=== PATIENT | male | born 1940 | race Caucasian/White ===

== ENCOUNTER 2019-08-19 17:19 | Inpatient (IN) | payer MEDICARE, BC ==
[2019-08-19] MEDS ORDERED: ASPIRIN 81 MG PO STA (18:07)
[2019-08-19] MEDS ORDERED: SODIUM CHLORIDE 0.9% 1,000 ML IV STA ×2 (18:07)
[2019-08-19] MEDS ORDERED: KETOROLAC 30 MG/ML 1 ML VIAL IVP STA ×2 (18:07→21:20)
[2019-08-19] MEDS ORDERED: IPRATROPIUM-ALBUTEROL 3 ML NEB INHALATION STA (18:08)
[2019-08-19 18:44] LABS: Basophils # (A) 0.1 k/uL (0-0.2); Basophils % (A) 1 %; Eosinophils # (A) 0.2 k/uL (0-0.7); Eosinophils % (A) 3 %; HCT 33.6 % (39.0-53.0); HGB 10.7 gm/dL (13.0-17.5); Lymphocytes # (A) 1.3 k/uL (1.0-4.8); Lymphocytes % (A) 20 %; MCH 28.8 pg (25.0-35.0); MCHC 31.9 g/dL (31.0-37.0); MCV 90.4 fL (80.0-100.0); Mean Platelet Volume 6.8; Monocytes # (A) 0.4 k/uL (0-1.0); Monocytes % (A) 6 %; Neutrophils # (A) 4.5 k/uL (1.3-7.7); Neutrophils % (A) 68 %; Platelet Count 196 k/uL (150-450); RBC 3.72 m/uL (4.30-5.90); RDW 14.6 % (11.5-15.5); WBC 6.6 k/uL (3.8-10.6)
[2019-08-19 19:00] LABS: Albumin 3.3 g/dL (3.5-5.0); Magnesium 2.2 mg/dL (1.6-2.3); Potassium 4.2 mmol/L (3.5-5.1); Total Bilirubin 0.5 mg/dL (0.2-1.3); Total Protein 6.1 g/dL (6.3-8.2)
[2019-08-19 19:02] LABS: Prothrombin Time 10.4 sec (9.0-12.0)
[2019-08-19 19:09] LABS: D-Dimer 9.7 mg/L FEU (<0.60)
[2019-08-19] MEDS ORDERED: MORPHINE SULFATE 4 MG/ML SYRINGE IV STA (19:24)
--- NOTE | 2019-08-19 20:27 | XR ---
EXAMINATION: XR chest 2V DATE AND TIME: 08/19/2019 7:06 PM CLINICAL INDICATION: Chest Pain TECHNIQUE: Departmental protocol COMPARISON: 06/27/2013 FINDINGS: The lungs appear clear. The pleural spaces are negative. The cardiac silhouette is not enlarged. Thoracic aortic tortuosity noted. The skeletal structures and soft tissues are negative for acute findings. IMPRESSION: NO DEFINITE ACUTE PROCESS.
--- NOTE | 2019-08-19 21:05 | CT ---
EXAMINATION TYPE: CT angio chest DATE OF EXAM: 08/19/2019 COMPARISON: Chest x-ray earlier tonight. HISTORY: CHEST PRESSURE AND SYNCOPE CT DLP: 261.5 mGycm. Automated Exposure Control for Dose Reduction was Utilized. CONTRAST: CTA scan of the thorax is performed with IV Contrast, patient injected with 100 mL of Isovue 370, pul monary embolism protocol. MIP Images are created on CT scanner and reviewed. FINDINGS: LUNGS: Mild to moderate underlying emphysematous change most prominent in the upper lungs. Mild biap ical pleural/peripheral scarring slightly more prominent in the right lung apex. Posterior bibasilar linear scarring and/or atelectasis. No suspicious nodules or masses. No pleural effusion or pneumotho rax is evident bilaterally. MEDIASTINUM: There is satisfactory enhancement of the pulmonary artery and its branches, there is no CT evidence for pulmonary embolism. There are enlarged right and left pulmonary arteries, CT findings consistent with underlying pulmonary hypertension. There are no greater than 1 cm hilar or mediasti nal lymph nodes. No cardiomegaly or pericardial effusion is seen. Atherosclerotic change in ectatic thoracic aorta is seen. There is partial visualization of AAA measuring up to 5.5 cm transversely ax ial image 172 with significant peripheral noncalcified plaque increased in size from 2013 CT OTHER: New innumerable sclerotic foci throughout the osseous structures of the spine with a few scatt ered sternal lesions. IMPRESSION: 1. No CT evidence for acute pulmonary embolism. 2. [id number] emphysematous change with CT evidence of underlying pulmonary hypertension. No victoria spicious acute pulmonary process. 3. Partial visualization of AAA measuring up to 5.5 cm transversely increased in size from 2013 CT. 4. New innumerable sclerotic osseous foci consistent with metastatic disease from known prostate canc er new from bone scan 2012.
[2019-08-19] MEDS ORDERED: methylPREDNISolone SOD SUCCI 125 MG/2 ML VIAL IV STA (21:09)
[2019-08-19] MEDS ORDERED: HYDROmorphone 1 MG/ML 1 ML SYRINGE IVP STA (21:20)
[2019-08-19] MEDS ORDERED: ACETAMINOPHEN TAB 325 MG TAB PO PRN (21:28)
[2019-08-19] MEDS ORDERED: IBUPROFEN 400 MG TAB PO PRN (21:28)
[2019-08-19] MEDS ORDERED: HYDROmorphone 1 MG/ML 1 ML SYRINGE IVP PRN (21:28)
[2019-08-19] MEDS ORDERED: ONDANSETRON 4 MG/2 ML VIAL IVP PRN (21:28)
[2019-08-19] MEDS ORDERED: NALOXONE 0.4 MG/ML 1 ML VIAL IV PRN (21:28)
--- NOTE | 2019-08-19 21:28 | ED ---
General Adult HPI - General Chief complaint: Syncope Stated complaint: Chest pressure, syncope Time Seen by Provider: 08/19/19 18:00 Source: patient Mode of arrival: ambulatory Limitations: no limitations - History of Present Illness Initial comments: This 78-year-old white male presents with a complaint of having a syncopal episode. This apparently occurred yesterday. He was caught by a family member and did not injure himself. He denies any previous known incidents. He also relates that he's been having a 20 pound weight loss over the past month. He also complains of some pain into his thoracic region posteriorly. He has some pain into his left anterior chest as well. This is somewhat worse with any deep inspiration. He relates a history of having prostate cancer which was reviewed radiated many years ago. He follows with a urologist and states that his last PSA was fairly elevated but they did not do anything about it. He scheduled to follow-up with urology again later this month. He denies any other known history of cancer. He denies any fevers or chills. There is no leg pain or swelling. There is no history of DVT or PE. No other complaints or modifying factors. - Related Data Home Medications Medication Instructions Recorded Confirmed Aspirin EC [Ecotrin Low Dose] 81 mg PO DAILY 08/19/19 08/19/19 Ibuprofen [Motrin] 800 mg PO TID PRN 08/19/19 08/19/19 Allergies Allergy/AdvReac Type Severity Reaction Status Date / Time No Known Allergies Allergy Verified 08/19/19 18:29 Review of Systems ROS Statement: Those systems with pertinent positive or pertinent negative responses have been documented in the HPI. ROS Other: All systems not noted in ROS Statement are negative. Past Medical History Additional Past Medical History / Comment(s): prostate History of Any Multi-Drug Resistant Organisms: None Reported Past Surgical History: No Surgical Hx Reported Past Psychological History: No Psychological Hx Reported Smoking Status: Current every day smoker Past Alcohol Use History: Daily Past Drug Use History: None Reported General Exam - General Exam Comments Initial Comments: GENERAL: The patient appears malnourished and dehydrated. VITAL SIGNS: Heart rate, blood pressure, respiratory rate reviewed as recorded in nurse's notes. EYES: Pupils are round and reactive. Extraocular movements are intact. No conj unctival / lid redness or swelling. ENT: No external evidence of injury, swelling, or ecchymosis. Airway is patent. Throat is clear. NECK: Nontender. No swelling or evidence of injury. No subcutaneous emphysema. Trachea is midline. No thyroid mass. HEART: Regular rate and rhythm. Good peripheral pulses. LUNGS/CHEST: Breath sounds clear and equal bilaterally. No rales, rhonchi, or wheezes. No ecchymosis, subcutaneous emphysema, or tenderness. ABDOMEN: Abdomen soft without tenderness. No palpable masses or organomegaly. No peritoneal signs. No abdominal wall swelling or ecchymosis. EXTREMITIES: No extremity tenderness. Normal muscle tone and function. No thoracolumbar tenderness. NEUROLOGIC: Sensation is grossly intact. Cranial nerve exam reveals face is symmetrical, tongue is midline, speech is clear. SKIN: No abrasions or ecchymosis is noted. No induration or masses noted. PSYCHIATRIC: Alert and oriented. Appropriate behavior and judgment. Limitations: no limitations Course Vital Signs 08/19/19 08/19/19 08/19/19 17:30 18:34 18:43 Temperature 97.5 F L Pulse Rate 82 76 72 Pulse Rate [ Sitting Pulse Oximetery] Pulse Rate [ Standing Pulse Oximetery] Pulse Rate [ Supine Pulse Oximetery] Respiratory 18 Rate Blood Pressure 117/70 Blood Pressure [Right Arm Sitting] Blood Pressure [Right Arm Standing] Blood Pressure [Right Arm Supine] O2 Sat by Pulse 97 Oximetry 08/19/19 08/19/19 18:58 20:35 Temperature Pulse Rate 78 Pulse Rate [ 70 Sitting Pulse Oximetery] Pulse Rate [ 86 Standing Pulse Oximetery] Pulse Rate [ 89 Supine Pulse Oximetery] Respiratory 18 Rate Blood Pressure 130/84 Blood Pressure 114/77 [Right Arm Sitting] Blood Pressure 115/65 [Right Arm Standing] Blood Pressure 131/79 [Right Arm Supine] O2 Sat by Pulse 97 Oximetry Procedures - [place] Protocol (Time Out) Nurse: Sandy Dwyer Medical Decision Making - Medical Decision Making The patient was seen and examined. All diagnostics were reviewed. The patient had a chest x-ray which did not show any acute process. The laboratory does show evidence of anemia and a d-dimer greater than 8. Therefore, computed tomography scan of the thorax was done with contrast and this does show evidence of a numerable lesions noted throughout the spine and sternum likely consistent with metastatic cancer. The exact primary is not determined but is highly suspicious that this could be potentially related to his prostate in light of his history of prostate cancer and recent elevation of his PSA. He does receive some morphine for his posterior thoracic pain with limited relief. He is ordered some Dilaudid and Toradol as well. He does receive some steroids as well as a DuoNeb breathing treatment. He does have some mild shortness of breath and utilizes tobacco the breathing treatment may have helped slightly. It is felt as though he would require admission to the hospital for further treatment of his intractable pain, evaluation of his syncope and potential workup of this potential metastatic cancer. He is agreeable. Case is discussed with Dr. Mendez and he is agreeable to admission. - Lab Data Result diagrams: 08/19/19 18:24 08/19/19 18:24 Lab Results 08/19/19 08/19/19 08/19/19 Range/Units 18:24 18:24 18:24 WBC 6.6 (3.8-10.6) k/uL RBC 3.72 L (4.30-5.90) m/uL Hgb 10.7 L (13.0-17.5) gm/dL Hct 33.6 L (39.0-53.0) % MCV 90.4 (80.0-100.0) fL MCH 28.8 (25.0-35.0) pg MCHC 31.9 (31.0-37.0) g/dL RDW 14.6 (11.5-15.5) % Plt Count 196 (150-450) k/uL Neutrophils % 68 % Lymphocytes % 20 % Monocytes % 6 % Eosinophils % 3 % Basophils % 1 % Neutrophils # 4.5 (1.3-7.7) k/uL Lymphocytes # 1.3 (1.0-4.8) k/uL Monocytes # 0.4 (0-1.0) k/uL Eosinophils # 0.2 (0-0.7) k/uL Basophils # 0.1 (0-0.2) k/uL PT 10.4 (9.0-12.0) sec INR 1.0 (<1.2) APTT 24.0 (22.0-30.0) sec D-Dimer 9.70 H (<0.60) mg/L FEU Sodium 139 (137-145) mmol/L Potassium 4.2 (3.5-5.1) mmol/L Chloride 105 (98-107) mmol/L Carbon Dioxide 24 (22-30) mmol/L Anion Gap 10 mmol/L BUN 28 H (9-20) mg/dL Creatinine 0.94 (0.66-1.25) mg/dL Est GFR (CKD-EPI)AfAm 89 (>60 ml/min/1.73 sqM) Est GFR (CKD-EPI)NonAf 77 (>60 ml/min/1.73 sqM) Glucose 118 H (74-99) mg/dL Calcium 9.0 (8.4-10.2) mg/dL Magnesium 2.2 (1.6-2.3) mg/dL Total Bilirubin 0.5 (0.2-1.3) mg/dL AST 31 (17-59) U/L ALT 10 L (21-72) U/L Alkaline Phosphatase 149 H (38-126) U/L Troponin I (0.000-0.034) ng/mL NT-Pro-B Natriuret Pep pg/mL Total Protein 6.1 L (6.3-8.2) g/dL Albumin 3.3 L (3.5-5.0) g/dL TSH 1.050 (0.465-4.680) mIU/L 08/19/19 08/19/19 Range/Units 18:24 18:24 WBC (3.8-10.6) k/uL RBC (4.30-5.90) m/uL Hgb (13.0-17.5) gm/dL Hct (39.0-53.0) % MCV (80.0-100.0) fL MCH (25.0-35.0) pg MCHC (31.0-37.0) g/dL RDW (11.5-15.5) % Plt Count (150-450) k/uL Neutrophils % % Lymphocytes % % Monocytes % % Eosinophils % % Basophils % % Neutrophils # (1.3-7.7) k/uL Lymphocytes # (1.0-4.8) k/uL Monocytes # (0-1.0) k/uL Eosinophils # (0-0.7) k/uL Basophils # (0-0.2) k/uL PT (9.0-12.0) sec INR (<1.2) APTT (22.0-30.0) sec D-Dimer (<0.60) mg/L FEU Sodium (137-145) mmol/L Potassium (3.5-5.1) mmol/L Chloride (98-107) mmol/L Carbon Dioxide (22-30) mmol/L Anion Gap mmol/L BUN (9-20) mg/dL Creatinine (0.66-1.25) mg/dL Est GFR (CKD-EPI)AfAm (>60 ml/min/1.73 sqM) Est GFR (CKD-EPI)NonAf (>60 ml/min/1.73 sqM) Glucose (74-99) mg/dL Calcium (8.4-10.2) mg/dL Magnesium (1.6-2.3) mg/dL Total Bilirubin (0.2-1.3) mg/dL AST (17-59) U/L ALT (21-72) U/L Alkaline Phosphatase (38-126) U/L Troponin I <0.012 (0.000-0.034) ng/mL NT-Pro-B Natriuret Pep 1130 pg/mL Total Protein (6.3-8.2) g/dL Albumin (3.5-5.0) g/dL TSH (0.465-4.680) mIU/L Disposition Clinical Impression: History of prostate cancer, Bony metastasis, Dyspnea, Tobacco abuse, Back pain, Chest pain, Weight loss Disposition: ADMITTED IP TO THIS [facility] Condition: Poor Is patient prescribed a controlled substance at d/c from ED?: No Referrals: Nonstaff,Physician [Primary Care Provider] - 1-2 days Time of Disposition: 21:28 Decision Date: 08/19/19 Decision Time: 21:28
--- NOTE | 2019-08-19 23:06 | P.HPIM ---
History of Present Illness H&P Date: 08/19/19 Chief Complaint: Intractable back pain 78-year-old male with history of prostate cancer 20 years ago treated with radiation [place] visiting his family down here in [place]. He reports all started when he had this long drive from [place] down here felt very tired with time he got here it was raining with heavy traffic when he got out of the car he collapsed between his granddaughter's hand who caught him he thinks he might have passed out briefly he denies any head injury bystanders denies any seizure-like activities. He felt fine after that but was feeling generalized fatigue and debility for a while now. He reports at least 20 pounds of weight loss over the past month or 2. Family is concerned regarding his well-being, he lives alone and obviously he is not eating well and not taking good care of himself. He reports that recently he was told his PSA level was elevated and he was planning to follow-up with urology. He asked that he notices hematuria but no dysuria frequency or foul smell. Denies any fevers or chills denies any abdominal pain. He is complaining of severe sharp back pain in the midthoracic region which has been going on for a while getting worse and worse described it as sharp pain 10 out of 10 in severity comes and goes positional in nature worse with movement and laying down on his back gets better with leaning forward. Today the pain was very severe causing him to feel naus eous and throw up. Denies any hematemesis or bilious vomiting. He denies any GI bleeding or any changes in his bowel habits. He denies any chest pain or trouble breathing however he does report exertional dyspnea with mild exertion around the house which is new, denies any leg swelling orthopnea or paroxysmal nocturnal dyspnea. Patient doesn't take any medications at home The reason he came to the hospital today is because his kids are concerned regarding his well-being and insisted that he comes to the hospital to get evaluated. In the hospital he was found to be anemic CT of the chest and abdomen suggested bony metastasis concerning for metastatic lesions, and abdominal aortic aneurysm of 5.5 cm which has increased in size compared to 2013 he doesn't take any medications at home except for Aleve occasionally for pain Review of Systems Pertinent positives as noted in HPI. All other systems were reviewed and are negative Past Medical History Additional Past Medical History / Comment(s): prostate cancer History of Any Multi-Drug Resistant Organisms: None Reported Past Surgical History: No Surgical Hx Reported Past Psychological History: No Psychological Hx Reported Smoking Status: Current every day smoker Past Alcohol Use History: Daily Past Drug Use History: None Reported - Past Family History Family Family Medical History: No Reported History Additional Family Medical History / Comment(s): Reports history of cancer in his sister Medications and Allergies Home Medications Medication Instructions Recorded Confirmed Type Aspirin EC [Ecotrin Low Dose] 81 mg PO DAILY 08/19/19 08/19/19 History Ibuprofen [Motrin] 800 mg PO TID PRN 08/19/19 08/19/19 History Allergies Allergy/AdvReac Type Severity Reaction Status Date / Time No Known Allergies Allergy Verified 08/19/19 18:29 Physical Exam Vitals: Vital Signs Temp Pulse Pulse Pulse Pulse Resp BP 08/19/19 20:35 78 18 130/84 08/19/19 18:58 70 86 89 08/19/19 18:43 72 08/19/19 18:34 76 08/19/19 17:30 97.5 F L 82 18 117/70 BP BP BP Pulse Ox 08/19/19 20:35 97 08/19/19 18:58 114/77 115/65 131/79 08/19/19 18:43 08/19/19 18:34 08/19/19 17:30 97 Intake and Output 08/19/19 08/19/19 08/19/19 06:59 14:59 22:59 Other: Weight 58.06 kg Constitutional: Patient looks uncomfortable due to pain, conversant, pleasant, cachectic Eyes: Anicteric sclerae, moist conjunctiva, no lid-lag Pupils equal round reactive to light ENMT: NC/AT Oropharynx clear, no erythema, exudates Neck: Supple, FROM, no masses, or JVD No carotid bruits No thyromegaly Lungs: Clear to auscultation Clear to percussion Normal respiratory effort, no accessory muscle use Cardiovascular: Heart regular in rate and rhythm, No murmurs, gallops, or rubs No peripheral edema Abdominal: Soft Nontender, no guarding, rebound or rigidity Abdomen moving with respiration Normoactive bowel sounds No hepatomegaly, No splenomegaly No palpable mass No abdominal wall hernia noted Skin: Normal temperature, tone, texture, turgor No induration No subcutaneous nodules No rash, lesions No ulcers Extremities: No tenderness to palpation of the spine or the back No digital cyanosis No clubbing Pedal pulses intact and symmetrical Radial pulses intact and symmetrical No calf tenderness Psychiatric: Alert and oriented to person, place and time Appropriate affect fair judgment Neuro Muscles Strength 5/5 in all 4 extremities Sensation to light touch grossly present throughout Cranial nerves II-XII grossly intact No focal sensory deficits Lymphatics: no palpable cervical or supraclavicular , or inguinal lymph nodes Results CBC & Chem 7: 08/19/19 18:24 08/19/19 18:24 Labs: Abnormal Lab Results - Last 24 Hours (Table) 08/19/19 08/19/19 08/19/19 Range/Units 18:24 18:24 18:24 RBC 3.72 L (4.30-5.90) m/uL Hgb 10.7 L (13.0-17.5) gm/dL Hct 33.6 L (39.0-53.0) % D-Dimer 9.70 H (<0.60) mg/L FEU BUN 28 H (9-20) mg/dL Glucose 118 H (74-99) mg/dL ALT 10 L (21-72) U/L Alkaline Phosphatase 149 H (38-126) U/L Total Protein 6.1 L (6.3-8.2) g/dL Albumin 3.3 L (3.5-5.0) g/dL Assessment and Plan Assessment: 78-year-old male with history of prostate cancer 20 years ago. Admitted under observation with anticipated length of stay less than 2 midnights patient presenting with weight loss and decreased functional capacity along with intractable mid back pain Workup in the hospital suggested anemia, CT of the chest suggested bony metastasis and also suggested AAA of 5.5 cm. Plan: Intractable back pain Exertional dyspnea Anemia Abdominal aortic aneurysm of 5.5 cm Fainting episode Unintentional weight loss Debility [place]. Patient willing to establish care down here as he will be staying around for a while Patient reports elevated PSA and he was planning to follow-up with urology CT finding suggested metastatic bony lesions along with increase in size of abdominal aortic aneurysm to 5.5 cm compared to 2013 Plan Consult to urology due to patient reporting hematuria and history of prostate cancer along with recently elevated PSA Follow-up PSA level Counseled to oncology due to computed tomography scan findings suggestive of metastatic bony lesions most likely metastasis from history of prostate cancer Check LDH, PSA, ESR, Consult to vascular surgery to assess abdominal aortic aneurysm of 5.5 cm which has increased in size compared to 2013 Pain control with Toradol [place]'s and Dilaudid as needed Symptomatic treatment for vomiting which is probably induced by pain, Zofran when necessary IV fluid hydration Encourage by mouth intake as tolerated PPI twice a day Check echocardiogram for exertional dyspnea Follow up morning labs Surrogate decision-maker: Patient's son CODE STATUS: Full code DVT prophylaxis: Pneumatic compression Discussed with: Patient, ER, RN Anticipated length of stay less than [address]: Home A total of 65 minutes was spent on the care of this complex patient more than 50% of the time was spent in counseling and care coordination.
--- NOTE | 2019-08-19 23:09 | P.HPADDEND ---
H&P Addendum H&P Addendum Date: 08/19/19 Advanced Care Planning Active diagnoses: Intractable back pain concerning for metastatic bony lesions Unintentional weight loss, debility Exertional dyspnea Background: The patient was admitted for treatment of intractable back pain. Co nfirmation and clarification of wishes upon admission. Discussion: Person(s) present and participating in discussion: The patient, myself, and son and granddaughter Summary: I explained to the patient computed tomography scan findings and my concerns for metastatic bony lesions probably related to his history of prostate cancer along with unintentional weight loss. I also explained that the exertional dyspnea could be related to generalized debility but will rule out heart failure. Urology will also be consultative due to recently patient have received PSA levels that are elevated which is concerning for recurrent cancer along with patient reports of hematuria. Patient lives [place] alone with his care established over there. However he is willing to stay here in [place] on for a while with his kids to get the medical care and attention that he needs. He is willing to establish care with specialists in the area and he is hoping for complete recovery and regain his weight and strength back. He opted for CPR and resuscitation if he sustains of cardiopulmonary arrest. He named his son as a surrogate decision-maker if needed I answered all his questions with family at bedside. Time spent: Total time spent face to face in education and discussion directly related to advanced care plannin minutes
[2019-08-20] MEDS: PANTOPRAZOLE 40 MG/10 ML VIAL IVP SCH ×3 (01:13→20:40)
[2019-08-20] MEDS: NICOTINE 14MG/24HR PATCH TRANSDERM SCH ×3 (01:13→09:27)
[2019-08-20 07:38] LABS: ALT 15 U/L (21-72); AST 30 U/L (17-59); African American GFR (CKD) >90 (>60 ml/min/1.73 sqM); Albumin 2.9 g/dL (3.5-5.0); Alkaline Phosphatase 129 U/L (38-126); Anion Gap 8 mmol/L; Blood Urea Nitrogen 26 mg/dL (9-20); Calcium 8.5 mg/dL (8.4-10.2); Carbon Dioxide 22 mmol/L (22-30); Chloride 108 mmol/L (98-107); Glucose 144 mg/dL (74-99); LDH 1229 U/L (313-618); Non-African American GFR(CKD) 87 (>60 ml/min/1.73 sqM); Potassium 4.9 mmol/L (3.5-5.1); Sodium 138 mmol/L (137-145); Total Bilirubin 0.4 mg/dL (0.2-1.3); Total Protein 5.6 g/dL (6.3-8.2)
[2019-08-20 07:44] LABS: Basophils % (A) 0 %; Eosinophils # (A) 0.1 k/uL (0-0.7); Eosinophils % (A) 1 %; HCT 27.6 % (39.0-53.0); HGB 9.3 gm/dL (13.0-17.5); Lymphocytes # (A) 0.9 k/uL (1.0-4.8); Lymphocytes % (A) 15 %; MCH 29.7 pg (25.0-35.0); MCHC 33.7 g/dL (31.0-37.0); MCV 87.9 fL (80.0-100.0); Mean Platelet Volume 6.3; Monocytes # (A) 0.1 k/uL (0-1.0); Monocytes % (A) 2 %; Neutrophils # (A) 5.1 k/uL (1.3-7.7); Neutrophils % (A) 81 %; Platelet Count 162 k/uL (150-450); RBC 3.14 m/uL (4.30-5.90); RDW 14.1 % (11.5-15.5); WBC 6.3 k/uL (3.8-10.6)
[2019-08-20] MEDS ORDERED: BISACODYL 5 MG TABLET.DR PO PRN (09:00)
[2019-08-20] MEDS ORDERED: PANTOPRAZOLE 40 MG/10 ML VIAL IV SCH (09:00)
[2019-08-20] MEDS: KETOROLAC 30 MG/ML 1 ML VIAL IVP SCH ×3 (09:23→20:40)
[2019-08-20] MEDS: ASPIRIN 81 MG PO SCH (09:24)
[2019-08-20] MEDS: ENOXAPARIN 40 MG/0.4 ML SYRINGE SQ SCH (09:25)
[2019-08-20 09:45] LABS: Erythrocyte Sedimentation Rate 53 mm/hr (0-15)
--- NOTE | 2019-08-20 09:45 | CONS ---
DATE OF CONSULTATION: 08/20/2019 This is an 78-year-old gentleman who has been admitted to [facility] with history of back pain mostly in the chest area. Patient had a CT scan, no evidence of PE, but patient has a several metastatic bony lesion related to his prostate cancer with history of weight loss. [place] and he has been put on wasting with the family. Past history patient has severe prostate and had a radiation. PHYSICAL EXAMINATION: Patient was seen in his room, lying comfortably in bed. NECK: Supple trachea central. CHEST: Clear to auscultation. ABDOMEN: Soft femorals are palpable. The patient had a CT scan which showed of the chest which showed a 5.5 cm abdominal aortic aneurysm with some. PLAN: The [id number] will be seen by Oncology and Urology had and we will discuss with the patient and the family for surgical intervention. Follow with you. JAYDA / TEJAS: [id number] / MTDD
[2019-08-20 10:55] VITALS: BMI 17.3
--- NOTE | 2019-08-20 11:05 | P.GSCN ---
History of Present Illness Consult date: 08/20/19 Reason for Consult: The patient is an 78-year-old gentleman who was in the hospital with syncope. He apparently has a known history of prostate cancer with metastases. He has been cared for over the years by but in the last year [place] and is now being cared for by urologist in [facility]. Apparently the patient's disease is metastatic. He states that his PSA is in the 140 range. He states that when he last saw Dr. Calvin was in the 90 range. He states that he had radiation therapy to the prostate at 58. He is not certain of whether he has had any treatment for the metastases. On some pills but he cannot say exactly what these pills are. His son gave me the name of tamsulosin. He does not know whether he is on any LHRH therapy or antiandrogen therapy. He has periodic hematuria. He had a difficult time with urine retention back last winter. It sounds like he had either a surgical procedure or filiforms and followers to place a catheter. He states he's been voiding all right since. He has no bowel issues. He does have significant back pain. His history unfortunately is very vague. He does not know the name of his urologist in [place]. He has had some weight loss. Review of Systems - Constitutional Reports weakness, Reports weight loss - Genitourinary Reports as per HPI, Reports hematuria - Musculoskeletal Reports low back pain Past Medical History Additional Past Medical History / Comment(s): prostate cancer History of Any Multi-Drug Resistant Organisms: None Reported Past Surgical History: No Surgical Hx Reported Past Psychological History: No Psychological Hx Reported Smoking Status: Current every day smoker Past Alcohol Use History: Daily Past Drug Use History: None Reported - Past Family History Family Family Medical History: No Reported History Additional Family Medical History / Comment(s): Reports history of cancer in his sister Medications and Allergies Home Medications Medication Instructions Recorded Confirmed Type Aspirin EC [Ecotrin Low Dose] 81 mg PO DAILY 08/19/19 08/19/19 History Ibuprofen [Motrin] 800 mg PO TID PRN 08/19/19 08/19/19 History Tamsulosin [Flomax] 0.4 mg PO BID 08/20/19 08/20/19 History Allergies Allergy/AdvReac Type Severity Reaction Status Date / Time No Known Allergies Allergy Verified 08/19/19 18:29 Surgical - Exam Vital Signs Temp Pulse Resp BP Pulse Ox 97.5 F L 82 18 117/70 97 08/19/19 17:30 08/19/19 17:30 08/19/19 17:30 08/19/19 17:30 08/19/19 17:30 - General well developed, well nourished, no distress - Eyes PERRL - ENT no hearing loss - Neck trachea midline - Respiratory normal expansion, normal respiratory effort - Cardiovascular Rhythm: regular - Abdomen Abdomen: soft, non tender - Genitourinary normal penis with no external lesions, testicles present - Integumentary no rash - Neurologic normal coordination, normal sensation - Musculoskeletal normal posture - Psychiatric oriented to time, oriented to person, oriented to place, speech is normal, memory intact Results - Labs 08/20/19 06:50 08/20/19 06:50 Abnormal Lab Results - Last 24 Hours (Table) 08/19/19 08/19/19 08/19/19 Range/Units 18:24 18:24 18:24 RBC 3.72 L (4.30-5.90) m/uL Hgb 10.7 L (13.0-17.5) gm/dL Hct 33.6 L (39.0-53.0) % Lymphocytes # (1.0-4.8) k/uL ESR (0-15) mm/hr D-Dimer 9.70 H (<0.60) mg/L FEU Chloride (98-107) mmol/L BUN 28 H (9-20) mg/dL Glucose 118 H (74-99) mg/dL ALT 10 L (21-72) U/L Alkaline Phosphatase 149 H (38-126) U/L Lactate Dehydrogenase (313-618) U/L Total Protein 6.1 L (6.3-8.2) g/dL Albumin 3.3 L (3.5-5.0) g/dL 08/20/19 08/20/19 Range/Units 06:50 06:50 RBC 3.14 L (4.30-5.90) m/uL Hgb 9.3 L (13.0-17.5) gm/dL Hct 27.6 L (39.0-53.0) % Lymphocytes # 0.9 L (1.0-4.8) k/uL ESR 53 H (0-15) mm/hr D-Dimer (<0.60) mg/L FEU Chloride 108 H (98-107) mmol/L BUN 26 H (9-20) mg/dL Glucose 144 H (74-99) mg/dL ALT 15 L (21-72) U/L Alkaline Phosphatase 129 H (38-126) U/L Lactate Dehydrogenase 1229 H (313-618) U/L Total Protein 5.6 L (6.3-8.2) g/dL Albumin 2.9 L (3.5-5.0) g/dL Diabetes panel 08/19/19 08/20/19 Range/Units 18:24 06:50 Sodium 139 138 (137-145) mmol/L Potassium 4.2 4.9 (3.5-5.1) mmol/L Chloride 105 108 H (98-107) mmol/L Carbon Dioxide 24 22 (22-30) mmol/L BUN 28 H 26 H (9-20) mg/dL Creatinine 0.94 0.75 (0.66-1.25) mg/dL Glucose 118 H 144 H (74-99) mg/dL Calcium 9.0 8.5 (8.4-10.2) mg/dL AST 31 30 (17-59) U/L ALT 10 L 15 L (21-72) U/L Alkaline Phosphatase 149 H 129 H (38-126) U/L Total Protein 6.1 L 5.6 L (6.3-8.2) g/dL Albumin 3.3 L 2.9 L (3.5-5.0) g/dL Thyroid panel 08/19/19 Range/Units 18:24 TSH 1.050 (0.465-4.680) mIU/L Calcium panel 08/19/19 08/20/19 Range/Units 18:24 06:50 Calcium 9.0 8.5 (8.4-10.2) mg/dL Albumin 3.3 L 2.9 L (3.5-5.0) g/dL Pituitary panel 08/19/19 08/20/19 Range/Units 18:24 06:50 Sodium 139 138 (137-145) mmol/L Potassium 4.2 4.9 (3.5-5.1) mmol/L Chloride 105 108 H (98-107) mmol/L Carbon Dioxide 24 22 (22-30) mmol/L BUN 28 H 26 H (9-20) mg/dL Creatinine 0.94 0.75 (0.66-1.25) mg/dL Glucose 118 H 144 H (74-99) mg/dL Calcium 9.0 8.5 (8.4-10.2) mg/dL TSH 1.050 (0.465-4.680) mIU/L Adrenal panel 08/19/19 08/20/19 Range/Units 18:24 06:50 Sodium 139 138 (137-145) mmol/L Potassium 4.2 4.9 (3.5-5.1) mmol/L Chloride 105 108 H (98-107) mmol/L Carbon Dioxide 24 22 (22-30) mmol/L BUN 28 H 26 H (9-20) mg/dL Creatinine 0.94 0.75 (0.66-1.25) mg/dL Glucose 118 H 144 H (74-99) mg/dL Calcium 9.0 8.5 (8.4-10.2) mg/dL Total Bilirubin 0.5 0.4 (0.2-1.3) mg/dL AST 31 30 (17-59) U/L ALT 10 L 15 L (21-72) U/L Alkaline Phosphatase 149 H 129 H (38-126) U/L Total Protein 6.1 L 5.6 L (6.3-8.2) g/dL Albumin 3.3 L 2.9 L (3.5-5.0) g/dL - Imaging CT scan - abdomen: report reviewed, image reviewed CT scan - chest: report reviewed, image reviewed Assessment and Plan Assessment: Impression: Apparent metastatic prostate cancer based on limited history as well as recent computed tomography scan a. Back pain, weight loss dilated aortic aneurysm. Recommendations: Whether the patient has been on any treatment for his metastatic disease. Is indeterminate. I will review and have review the chart. We will follow up with further recommendations. Most likely any care for his prostate cancer will be instituted up in [place] has he is living up in that region.
--- NOTE | 2019-08-20 11:48 | P.PN ---
Subjective Progress Note Date: 08/20/19 The patient is an 78 yo M with past medical history of prostate CA status post radiation, presented to the ED with an episode of near syncope along with complaints of weight loss and lower back pain. The patient endorsed a sharp pain in the upper back, 10 out of 10, The patient denied urinary complaints, chest pain, shortness of breath, nausea, or vomiting. The patient underwent an extensive evaluation in the emergency room with chest CTA showing abdominal aortic aneurysm measuring 5.5 cm, increased from the previous CT, along with numerous sclerotic cautious foci consistent with metastatic disease of the spine. The patient was subsequently admitted for further management. Patient was seen by the bedside and noted significant improvement in his pain since admission, currently at a 4 out of 10. He denied any additional complaints. He denied urinary complaints, weakness, numbness, tingling, or any additional episodes of loss of consciousness or dizziness. The patient's LDH is increased at 1229, Alk be 129, and ESR 53. Oncology, vascular surgery, and urology were consulted w/ recs pending. Objective - Vital Signs Vital signs: Vital Signs Temp 97.6 F 08/20/19 04:13 Pulse 67 08/20/19 04:13 Resp 18 08/20/19 04:13 BP 109/65 08/20/19 04:13 Pulse Ox 95 08/20/19 04:13 Intake & Output 08/19/19 08/20/19 08/20/19 18:59 06:59 18:59 Intake Total 600 Output Total 400 Balance 200 Weight 58.06 kg 58.06 kg Intake: Intake, IV Titration 600 Amount Sodium Chloride 0.9% 1, 600 000 ml @ 100 mls/hr IV . Q10H STA Rx#:[id number] Output: Urine 400 Other: # Voids 2 - Exam General: Non-toxic, in no acute distress, appears stated age, underweight HEENT: NC/AT, anicteric sclerae, moist conjunctiva, no lid-lag, PERRLA Cardiovascular: S1/S2 wnl, no murmurs, rubs, or gallops Lungs: Clear to auscultation, normal respiratory effort, no accessory muscle use Abdominal: Soft, non-tender, non-distended, no guarding, rebound, or rigidity Skin: Warm, dry Extremities: No edema or contractures, thoracic vertebral tenderness, no paraspinal tenderness noted Psychiatric: Alert and oriented to person, place and time, appropriate affect Neuro: CN II-XII grossly intact, Strength 5/5 in all 4 extremities, Speech intact, Sensation to light touch grossly intact throughout - Labs CBC & Chem 7: 08/20/19 06:50 08/20/19 06:50 Labs: Abnormal Lab Results - Last 24 Hours (Table) 08/19/19 08/19/19 08/19/19 Range/Units 18:24 18:24 18:24 RBC 3.72 L (4.30-5.90) m/uL Hgb 10.7 L (13.0-17.5) gm/dL Hct 33.6 L (39.0-53.0) % Lymphocytes # (1.0-4.8) k/uL ESR (0-15) mm/hr D-Dimer 9.70 H (<0.60) mg/L FEU Chloride (98-107) mmol/L BUN 28 H (9-20) mg/dL Glucose 118 H (74-99) mg/dL ALT 10 L (21-72) U/L Alkaline Phosphatase 149 H (38-126) U/L Lactate Dehydrogenase (313-618) U/L Total Protein 6.1 L (6.3-8.2) g/dL Albumin 3.3 L (3.5-5.0) g/dL 08/20/19 08/20/19 Range/Units 06:50 06:50 RBC 3.14 L (4.30-5.90) m/uL Hgb 9.3 L (13.0-17.5) gm/dL Hct 27.6 L (39.0-53.0) % Lymphocytes # 0.9 L (1.0-4.8) k/uL ESR 53 H (0-15) mm/hr D-Dimer (<0.60) mg/L FEU Chloride 108 H (98-107) mmol/L BUN 26 H (9-20) mg/dL Glucose 144 H (74-99) mg/dL ALT 15 L (21-72) U/L Alkaline Phosphatase 129 H (38-126) U/L Lactate Dehydrogenase 1229 H (313-618) U/L Total Protein 5.6 L (6.3-8.2) g/dL Albumin 2.9 L (3.5-5.0) g/dL Assessment and Plan Plan: History of prostate cancer with newly diagnosed metastatic lesions to the spine -Oncology and urology consulted -Recommendations pending -ESR 53, LDH 1229, PSA pending Abdominal aortic aneurysm, increased to 5.5 cm -Vascular surgery consulted -Awaiting recommendations Normocytic anemia, likely secondary to chronic inflammation for malignancy -Monitor for now Cachexia -Secondary to advanced malignancy -Dietitian consult DVT prophylaxis -Lovenox Discussed with: Patient Anticipated discharge date: 1-[address]: Home A total of 35 minutes was spent on the care of this complex patient more than 50% of the time was spent in counseling and care coordination.
--- NOTE | 2019-08-20 14:42 | ECHOF ---
Referral Reason:Exertional dyspnea MEASUREMENTS -------- HEIGHT: 182.9 cm WEIGHT: 58.1 kg BP: 109/65 RVIDd: 3.7 cm (< 3.3) IVSd: 1.3 cm (0.6 - 1.1) LVIDd: 4.3 cm (3.9 - 5.3) LVPWd: 1.3 cm (0.6 - 1.1) IVSs: 1.6 cm LVIDs: 3.5 cm LVPWs: 1.6 cm LA Diam: 3.6 cm (2.7 - 3.8) LAESV Index (A-L): 32.89 ml/m Ao Diam: 3.7 cm (2.0 - 3.7) AV Cusp: 2.0 cm (1.5 - 2.6) TAPSE: 2.2 cm EPSS: 1.0 cm MV E Chi: 0.87 m/s MV DecT: 138 ms MV A Chi: 0.37 m/s MV E/A Ratio: 2.34 AV maxP.24 mmHg AV meanP.08 mmHg AR PHT: 756 ms RAP: 15.00 mmHg RVSP: 42.77 mmHg MV EF SLOPE: 62.76 mm/s (70 - 150) MV EXCURSION: 1.18 cm (> 18.000) FINDINGS -------- Resting bradycardia (HR<60bpm). The left ventricular size is normal. There is mild concentric left ventricular hypertrophy. Overa ll left ventricular systolic function is mildly impaired with, an EF between 45 - 50 %. Basal infer ior LV wall motion is akinetic. Basal inferoseptal LV wall motion is hypokinetic. Basel infero latera hypokinesis. Mid infero lateral hypokinesis The right ventricle is mildly enlarged. Left atrium is mildly dilated by volume. The right atrium is normal in size and function. Interatrial and interventricular septum intact. Aortic valve is trileaflet and is mildly thickened. The mitral valve leaflets are mildly thickened. Mild mitral annular calcification present. There is trace to mild mitral regurgitation. Mild tricuspid regurgitation present. There is mild pulmonary hypertension. The right ventricular systolic pressure, as measured by Doppler, is 42.77mmHg. Trace/mild (physiologic) pulmonic regurgitation. The aortic root size is normal. The inferior vena cava is dilated with poor inspiratory collapse which is consistent with estimated r ight atrial pressure of 15 mmHg. There is no pericardial effusion. CONCLUSIONS -------- 1. Resting bradycardia (HR<60bpm). 2. The left ventricular size is normal. 3. There is mild concentric left ventricular hypertrophy. 4. Overall left ventricular systolic function is mildly impaired with, an EF between 45 - 50 %. 5. Basal inferior LV wall motion is akinetic. 6. Basal inferoseptal LV wall motion is hypokinetic. 7. Basel infero latera hypokinesis. Mid infero lateral hypokinesis 8. The right ventricle is mildly enlarged. 9. Left atrium is mildly dilated by volume. 10. The right atrium is normal in size and function. 11. Interatrial and interventricular septum intact. 12. Aortic valve is trileaflet and is mildly thickened. 13. The mitral valve leaflets are mildly thickened. 14. Mild mitral annular calcification present. 15. There is trace to mild mitral regurgitation. 16. Mild tricuspid regurgitation present. 17. There is mild pulmonary hypertension. 18. The right ventricular systolic pressure, as measured by Doppler, is 42.77mmHg. 19. Trace/mild (physiologic) pulmonic regurgitation. 20. The aortic root size is normal. 21. The inferior vena cava is dilated with poor inspiratory collapse which is consistent with estimat ed right atrial pressure of 15 mmHg. 22. There is no pericardial effusion. [employer]MECHANIC: ANNA Martines
--- NOTE | 2019-08-20 15:02 | P.CONS ---
History of Present Illness - Reason for Consult Consult date: 08/20/19 ?[place] [facility] Les[facility] Requesting physician: Andrew Jiménez - Chief Complaint pain - History of Present Illness Mr. Rogle is patient with known prostate cancer who has been treated and following with Urology for his malignancy. Medical oncology has been consulted this hospitalization for concern of progressive disease to bone. Review of Systems A 14 point review of systems assessed and completed and all negative except hpi Past Medical History Additional Past Medical History / Comment(s): prostate cancer History of Any Multi-Drug Resistant Organisms: None Reported Past Surgical History: No Surgical Hx Reported Past Psychological History: No Psychological Hx Reported Smoking Status: Current every day smoker Past Alcohol Use History: Daily Past Drug Use History: None Reported - Past Family History Family Family Medical History: No Reported History Additional Family Medical History / Comment(s): Reports history of cancer in his sister Medications and Allergies Home Medications Medication Instructions Recorded Confirmed Type Aspirin EC [Ecotrin Low Dose] 81 mg PO DAILY 08/19/19 08/19/19 History Ibuprofen [Motrin] 800 mg PO TID PRN 08/19/19 08/19/19 History Tamsulosin [Flomax] 0.4 mg PO BID 08/20/19 08/20/19 History Allergies Allergy/AdvReac Type Severity Reaction Status Date / Time No Known Allergies Allergy Verified 08/19/19 18:29 Physical Exam Vitals: Vital Signs Temp Pulse Pulse Pulse Pulse Resp BP 08/20/19 04:13 97.6 F 67 18 08/20/19 00:00 70 86 64 18 08/19/19 23:00 98.0 F 67 18 136/73 08/19/19 21:59 97.4 F L 64 16 08/19/19 21:34 72 18 141/89 08/19/19 20:35 78 18 130/84 08/19/19 18:58 70 86 89 08/19/19 18:43 72 08/19/19 18:34 76 08/19/19 17:30 97.5 F L 82 18 117/70 BP BP BP Pulse Ox 08/20/19 04:13 109/65 95 08/20/19 00:00 08/19/19 23:00 97 08/19/19 21:59 140/56 95 08/19/19 21:34 95 08/19/19 20:35 97 08/19/19 18:58 114/77 115/65 131/79 08/19/19 18:43 08/19/19 18:34 08/19/19 17:30 97 Intake and Output 08/19/19 08/20/19 08/20/19 22:59 06:59 14:59 Intake Total 600 Output Total 400 Balance 200 Intake: Intake, IV Titration 600 Amount Sodium Chloride 0.9% 1, 600 000 ml @ 100 mls/hr IV . Q10H STA Rx#:[id number] Output: Urine 400 Other: # Voids 2 Weight 58.06 kg 58.06 kg - Constitutional General appearance: average body habitus, no acute distress - EENT Eyes: EOMI, PERRLA ENT: hard of hearing, NA/AT - Neck supple - Respiratory Respiratory: bilateral: CTA - Cardiovascular Rhythm: regular Heart sounds: normal: S1, S2 - Gastrointestinal General gastrointestinal: normal bowel sounds, soft - Integumentary Integumentary: pale - Neurologic no focal defects - Musculoskeletal Musculoskeletal: generalized weakness - Psychiatric Psychiatric: A&O x's 3, appropriate affect Results CBC & Chem 7: 08/20/19 06:50 08/20/19 06:50 Labs: Abnormal Lab Results - Last 24 Hours (Table) 08/19/19 08/19/19 08/19/19 Range/Units 18:24 18:24 18:24 RBC 3.72 L (4.30-5.90) m/uL Hgb 10.7 L (13.0-17.5) gm/dL Hct 33.6 L (39.0-53.0) % Lymphocytes # (1.0-4.8) k/uL ESR (0-15) mm/hr D-Dimer 9.70 H (<0.60) mg/L FEU Chloride (98-107) mmol/L BUN 28 H (9-20) mg/dL Glucose 118 H (74-99) mg/dL ALT 10 L (21-72) U/L Alkaline Phosphatase 149 H (38-126) U/L Lactate Dehydrogenase (313-618) U/L Total Protein 6.1 L (6.3-8.2) g/dL Albumin 3.3 L (3.5-5.0) g/dL 08/20/19 08/20/19 Range/Units 06:50 06:50 RBC 3.14 L (4.30-5.90) m/uL Hgb 9.3 L (13.0-17.5) gm/dL Hct 27.6 L (39.0-53.0) % Lymphocytes # 0.9 L (1.0-4.8) k/uL ESR 53 H (0-15) mm/hr D-Dimer (<0.60) mg/L FEU Chloride 108 H (98-107) mmol/L BUN 26 H (9-20) mg/dL Glucose 144 H (74-99) mg/dL ALT 15 L (21-72) U/L Alkaline Phosphatase 129 H (38-126) U/L Lactate Dehydrogenase 1229 H (313-618) U/L Total Protein 5.6 L (6.3-8.2) g/dL Albumin 2.9 L (3.5-5.0) g/dL Assessment and Plan Plan: Metastatic Prostate Cancer: - Managed by Urology - Will consult urology - Unclear treatment he was on and if bone progression is new. - Bone Scan ordered - Repeat PSA Physician Attest: I have completed the full history and physical and agree with above dictation, dictated as a scribe
[2019-08-20] MEDS: HYDROcodone/APAP 5-325MG 1 EACH TAB PO PRN ×2 (15:13→19:11)
--- NOTE | 2019-08-20 16:17 | NM ---
EXAMINATION TYPE: NM bone scan whole body DATE OF EXAM: 08/20/2019 COMPARISON: Prior nuclear medicine whole body bone scan June 27, 2013. CTA chest from earlier today. HISTORY: History of prostate cancer. Delayed whole-body scanning was performed following the injection of 23.8 mCi Tc 99m MDP. Images acq uired 3 hours post injection. FINDINGS: There are innumerable areas of radiotracer uptake throughout the bilateral ribs as well as multifocal throughout the thoracolumbar spine with 2 right femoral lesions thought present. Findings correlate with most recent CTA chest study. IMPRESSION: Confirmation of diffuse osseous metastatic disease.
[2019-08-20] MEDS: TAMSULOSIN 0.4 MG CAP.ER.24H PO SCH (20:40)
[2019-08-21] MEDS: HYDROcodone/APAP 5-325MG 1 EACH TAB PO PRN ×4 (01:07→19:54)
[2019-08-21] MEDS: KETOROLAC 30 MG/ML 1 ML VIAL IVP SCH ×4 (02:24→21:02)
--- NOTE | 2019-08-21 07:55 | PN ---
PROGRESS NOTE An 78-year-old gentleman who came with back pain. Patient had history of CA of prostate and CT scan shows infrarenal aortic aneurysm 5.3 with bone mets. PHYSICAL EXAMINATION: The patient on examination, lying comfortably in bed. ABDOMEN: Soft, nontender. Femoral pulses are present. Aorta is nontender. Patient has been getting pain medication. At this point, aneurysm is stable and we will follow with you. If patient goes home, I will follow up in my office. MMODL / IJN: [id number] /
[2019-08-21] MEDS: PANTOPRAZOLE 40 MG/10 ML VIAL IVP SCH ×2 (08:22→08:26)
[2019-08-21] MEDS: ASPIRIN 81 MG PO SCH (08:22)
[2019-08-21] MEDS: ENOXAPARIN 40 MG/0.4 ML SYRINGE SQ SCH ×2 (08:22→08:32)
[2019-08-21] MEDS: TAMSULOSIN 0.4 MG CAP.ER.24H PO SCH ×2 (08:22→19:57)
[2019-08-21] MEDS: NICOTINE 14MG/24HR PATCH TRANSDERM SCH (08:25)
[2019-08-21] MEDS: PANTOPRAZOLE 40 MG TABLET PO SCH (17:46)
--- NOTE | 2019-08-21 19:43 | P.PN ---
Subjective Progress Note Date: 08/21/19 (delayed charting seen at 1145) Principal diagnosis: weakness and syncope Patient is an 78-year-old male past medical history of prostate cancer treated with radiation, prior myocardial infarction approximately 20 years ago, and tobacco abuse who presented to [facility] after a syncopal episode. Patient had been living near [place] but was down here visiting family. He also reported a 20 pound weight loss over the last several months. He has been having severe sharp back pain with radiation to the anterior chest. In the ER he underwent an extensive evaluation. CT a of the chest which showed mild to moderate emphysematous changes with new innumerable sclerotic foci consistent with metastatic disease from known prostate cancer and an abdominal aortic aneurysm 5.5 cm which has increased in size compared to 2013. On initial evaluation in the ER his vital signs are within normal limits. Orthostatics were negative. Laboratory analysis showed anemia, elevated BUN at 28, elevated alkaline phosphatase at 149, and low albumin at 3.3. Oncology and urology were consulted. Dr. Sparrow stated patient was following [facility] but would discuss case with Dr. Calvin. He was seen by oncology who suggested a bone scan. Echocardiogram was completed to his syncopal event which showed an ejection fraction of 45-50% with global left ventricular hypokinesis. Dr. Hoffman was consulted from vascular surgery who recommended outpatient follow-up for his aortic aneurysm. He underwent a nuclear medicine bone scan which showed confirmation of the diffuse osseous metastatic disease. There was innumerable areas of radial tracer uptake throughout the bilateral ribs, multifocal throughout the thoracolumbar spine, with 2 right femoral lesions. Patient seen and examined at bedside. He states his pain is well-controlled today and he felt better than he has in months. He denies any chest pain, shortness breath, nausea, vomiting, or lower extremity edema. He reports that he had a history of a myocardial infarction approximately 20 years ago. He has not been following with a marketing systems analyst. He also states that he recently transferred his care to [facility] approximately one year ago. He has seen the urologist up there once on a primary care doctor up there twice. However he has no family support near [place] if he needs treatment for prostate cancer he would like this done in the [place] area. Objective - Vital Signs Vital signs: Vital Signs Temp 97.5 F L 08/21/19 12:28 Pulse 67 08/21/19 15:39 Resp 17 08/21/19 15:39 BP 129/80 08/21/19 12:28 Pulse Ox 93 L 08/21/19 12:28 Intake & Output 08/21/19 08/21/19 08/22/19 06:59 18:59 06:59 Intake Total 1400 2400 Output Total 400 Balance 1400 2000 Intake: Intake, IV Titration 300 Amount Sodium Chloride 0.9% 1, 300 000 ml @ 100 mls/hr IV . Q10H STA Rx#:[id number] Oral 1100 2400 Output: Urine 400 Other: Voiding Method Toilet Toilet Urinal Urinal # Voids 2 4 - Exam General: ill appearing, temporal wasting, sunken in eyes, no distress, appears at stated age Derm: warm, dry Head: atraumatic, normocephalic, symmetric Eyes: EOMI, no lid lag, anicteric sclera Mouth: no lip lesion, mucus membranes moist Cardiovascular: S1S2 reg, no murmur, positive posterior tibial pulse bilateral, Lungs: Decreased breath sounds bilateral, no rhonchi, no rales , no accessory muscle use Abdominal: soft, nontender to palpation, no guarding, no appreciable organomegaly Ext: no gross muscle atrophy, no edema, no contractures Neuro: CN II-XI grossly intact, no focal neuro deficits Psych: Alert, oriented, appropriate affect - Labs CBC & Chem 7: 08/20/19 06:50 08/20/19 06:50 Labs: Abnormal Lab Results - Last 24 Hours (Table) 08/19/19 08/20/19 Range/Units 18:24 06:50 Total PSA >150.0 H (<=4.0) ng/mL Total Testosterone 42.00 L (86.98-780.10) ng/dL Assessment and Plan Assessment: Diffuse Emily Metastasis with known prostate cancer, intractable pain - patient would like treatment in the [place] Area - known to Dr. Calvin in the past, transferred care to [place] 1 year ago, Patient states that cancer was not in bone the last he knew - Oncology recs - Pain currently controlled on toradol and dailudid - consider palliative radiation if pain uncontrolled - patient would not want chemo but would be okay with hormone therapy. - PSA >150 - Patient unaware of name of current urologist or if on current treatment - would like palliative care on discharge to help with pain control Abdominal aortic aneurysm - vascular surgery recs appreciated, outpatient follow-up Syncope with newly discovered cardiomyopathy - tele - consult cardio - start coreg BPH - flomax Anemia - stable - check iron studies Cachexia with severe protein calorie malnutrition, BMI 17.4 - consult dietitian - supplements DVT prophylaxis: Lovenox (hold incase biopsy needed) Discussed with: Patient Anticipated discharge date: 1-[address]: Home A total of 45 minutes was spent on the care of this complex patient more than 50% of the time was spent in counseling and care coordination.
--- NOTE | 2019-08-21 20:40 | P.PN ---
Progress Note - Text Progress Note Date: 08/21/19 The patient says that he is much more comfortable with his current dose of analgesics. PSA is >150. A testosterone was checked and is 42 which indicates inadequate androgen suppression. Bone scan showed multiple areas consistent with metastatic disease. The patient has a somewhat complicated urologic history. He was diagnosed with prostate cancer in 1994 when his PSA was 7.0. He received radiation therapy at the [facility] but did not return there for follow-up after one yea r. He was first seen by me in 2005 when his PSA was 10.82. A bone scan showed increased uptake in the right femur however this was the site of a previous bone fracture and did not appear to be metastatic. CT scan of the abdomen and pelvis showed no evidence of metastatic disease. It was elected to observe the patient as he has no symptoms at that time. His PSA ric to 12.5 in 02/2007 and then 15.2 in 10/2007. He again prefer observation. PSA was 19.1 in 01/2008. Bone scan was repeated but no showed no changes. He did not return for follow-up for some time and was seen again in 2016 when his PSA was 91.8. He was given a 6 month Lupron injection in 12/2016 and was not seen again until 06/2018. At that time his PSA was 84.7. He received another 6 month Lupron injection in 07/2018. He moved away from this area and declined follow-up due to the distance he would have to travel. He says that he had seen Iseladianne Hernandez DO in [place] last spring but could not recall whether he had received another Lupron injection. He thinks he had a PSA done but unfortunately I have no records of the PSA value. I had a long discussion with the patient and his granddaughter. I believe that he should be restarted on Lupron at this time as his testosterone is in the non- castrate range. In view of his abnormal bone scan several options for additional treatment were also discussed. He could received localized radiation therapy to the areas in his spine which are currently painful. I believe that he would also benefit from additional anti-androgen therapy using either enzalutamide or abiatarone/prednisone and/or chemotherapy with docetaxel. An attempt will be made to see what had been done as far as treatment last spring as well as his most recent PSAs.
[2019-08-22] MEDS: KETOROLAC 30 MG/ML 1 ML VIAL IVP SCH ×3 (03:03→13:24)
[2019-08-22] MEDS: HYDROcodone/APAP 5-325MG 1 EACH TAB PO PRN ×2 (05:36→09:43)
[2019-08-22] MEDS: TAMSULOSIN 0.4 MG CAP.ER.24H PO SCH (07:59)
[2019-08-22] MEDS: PANTOPRAZOLE 40 MG TABLET PO SCH (07:59)
[2019-08-22] MEDS: ASPIRIN 81 MG PO SCH (07:59)
[2019-08-22] MEDS: NICOTINE 14MG/24HR PATCH TRANSDERM SCH (08:02)
[2019-08-22 08:40] LABS: HCT 26.3 % (39.0-53.0); HGB 8.8 gm/dL (13.0-17.5); MCH 30.4 pg (25.0-35.0); MCHC 33.3 g/dL (31.0-37.0); MCV 91.3 fL (80.0-100.0); Mean Platelet Volume 6.3; Platelet Count 154 k/uL (150-450); RBC 2.88 m/uL (4.30-5.90); RDW 14.5 % (11.5-15.5); WBC 6.2 k/uL (3.8-10.6)
[2019-08-22 08:59] LABS: African American GFR (CKD) >90 (>60 ml/min/1.73 sqM); Anion Gap 3 mmol/L; Blood Urea Nitrogen 25 mg/dL (9-20); Calcium 7.8 mg/dL (8.4-10.2); Carbon Dioxide 25 mmol/L (22-30); Chloride 107 mmol/L (98-107); Glucose 89 mg/dL (74-99); Non-African American GFR(CKD) 88 (>60 ml/min/1.73 sqM); Potassium 3.9 mmol/L (3.5-5.1); Sodium 135 mmol/L (137-145)
--- NOTE | 2019-08-22 13:09 | P.PN ---
Progress Note - Text Progress Note Date: 08/22/19 I was able to obtain some information from the urologist in [place] who had seen the patient last spring. The patient did not receive any additional Lupron injections since the fall. PSA was 242.7 on 06/04/2019. 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 I had a long discussion with the patient and two of his sons regarding treatment options. I again reviewed focal radiation therapy to his spine for pain relief. I also discussed chemotherapy with docetaxal and/or androgen deprivation therapy. The patient has an appointment to discuss this further with Dr. Lau next week.
--- NOTE | 2019-08-22 13:36 | P.CRDCN ---
History of Present Illness History of present illness: This is a pleasant 78-year-old male past medical history significant for prostate cancer s/p radiation treatment, coronary artery disease 40 yrs ago, chronic nicotine dependence and daily alcohol intake. He does not follow regularly with a net trainer. He presented to the hospital after having a syncopal episode. He lives [place] and [facility] and was coming down to visit his niece. He states after getting out of the car his legs felt extremely weak and he drops to the ground. Per the patient he had approximately 32nd episode of loss of consciousness. He denies feeling dizzy or lightheaded, no chest pain no shortness of breath palpitations prior to and thereafter this event. Upon arrival to the emergency department he underwent diagnostic radiographic testing which revealed evidence of metastatic bone lesions. He subsequently underwent a bone scan which confirmed this diagnosis. Echocardiogram obtained reveals impaired LV systolic function with ejection fraction 45-50% with basal inferior lateral hypokinesia noted. RVSP of 42 mmHg. The patient is seen and examined sitting up in no acute distress. He denies any ongoing symptoms of dizziness or loss of consciousness. He denies chest discomfort, palpitations, nausea, vomiting or diaphoresis. He says at baseline he does have some intermittent shortness of breath but nothing is any different or worsened recently. EKG on arrival revealed sinus mechanism with inferior Q and non-specific abnormalities, no acute changes. Telemetry tracings reveal sinus mechanism with frequent ectopy and PVCs. There is also some PACs noted at times. Heart rate is quite variable. Chest x-ray is negative for an acute cardiopulmonary process. Blood pressure 98/54 with a heart rate in the 70s. The plan upon discharge his palliative care. At the time of my exam: CONSTITUTIONAL: Denies fever. Denies chills. EYES: Denies blurred vision. Denies vision changes. Denies eye pain. EARS, NOSE, MOUTH & THROAT: Denies headache. Denies sore throat. Denies ear pain. CARDIOVASCULAR: Denies chest pain. Denies shortness of breath. Denies orthopnea. Denies PND. Denies palpitations. RESPIRATORY: Denies cough. GASTROINTESTINAL: Denies abdominal pain. Denies diarrhea. Denies constipation. Denies nausea. Denies vomiting. MUSCULOSKELETAL: Denies myalgias. INTEGUMENTARY: Denies pruitis. Denies rash. NEUROLOGIC: Denies numbness. Denies tingling. Denies weakness. PSYCHIATRIC: Denies anxiety. Denies depression. ENDOCRINE: Denies fatigue. Denies weight change. Denies polydipsia. Denies polyurina. GENITOURINARY: Denies burning, hematuria or urgency with micturation. HEMATOLOGIC: Denies history of anemia. Denies bleeding. GENERAL: This is a 78-year-old male in no apparent distress at the time of my examination. Frail. HEENT: Head is atraumatic, normocephalic. Pupils are equal, round. Sclerae anicteric. Conjunctivae are clear. Mucous membranes of the mouth are moist. Neck is supple. There is no jugular venous distention. No carotid bruit is heard. LUNGS: Clear to auscultation no wheezes, rales or rhonchi. No chest wall tenderness is noted on palpation or with deep breathing. Coarse. Diminished bilaterally. HEART: Regular rate and rhythm without murmurs, rubs or gallops. S1 and S2 hea rd. ABDOMEN: Soft, nontender. Bowel sounds are heard. No organomegaly noted. EXTREMITIES: No evidence of peripheral edema and no calf tenderness noted. VASCULAR: Radial and dorsalis pedis pulses palpated, no evidence of clubbing. NEUROLOGIC: Patient is awake, alert and oriented x3. ASSESSMENT Ischemic cardiomyopathy History of coronary artery disease in the setting of an acute myocardial infar ction 40 years ago Prostate cancer status post radiation with metastasis to the bone Chronic nicotine dependence Daily alcohol intake PLAN Continue aspirin as previously ordered. Recommend initiating on VIDHI inhibitor if blood pressure improves. Clinically he is euvolemic. No evidence to suggest heart failure. Underlying cardiomyopathy may be secondary to myocardial infarction history. Thank you kindly for this consultation. Nurse Practitioner note has been reviewed, I agree with a documented findings and plan of care. Patient was seen and examined. Past Medical History Additional Past Medical History / Comment(s): prostate cancer History of Any Multi-Drug Resistant Organisms: None Reported Past Surgical History: No Surgical Hx Reported Past Psychological History: No Psychological Hx Reported Smoking Status: Current every day smoker Past Alcohol Use History: Daily Past Drug Use History: None Reported - Past Family History Family Family Medical History: No Reported History Additional Family Medical History / Comment(s): Reports history of cancer in his sister Medications and Allergies Home Medications Medication Instructions Recorded Confirmed Type Aspirin EC [Ecotrin Low Dose] 81 mg PO DAILY 08/19/19 08/19/19 History Ibuprofen [Motrin] 800 mg PO TID PRN 08/19/19 08/19/19 History Tamsulosin [Flomax] 0.4 mg PO BID 08/20/19 08/20/19 History Allergies Allergy/AdvReac Type Severity Reaction Status Date / Time No Known Allergies Allergy Verified 08/19/19 18:29 Physical Exam Vitals: Vital Signs Temp Pulse Pulse Resp BP BP Pulse Ox 08/22/19 07:42 97 08/22/19 04:45 95/53 98/54 94 L 08/22/19 04:40 99.3 F 79 20 94/36 92 L 08/21/19 19:51 98.3 F 91 116/75 94 L 08/21/19 15:39 67 17 Intake and Output 08/21/19 08/22/19 08/22/19 22:59 06:59 14:59 Intake Total 600 1190 Output Total 400 Balance 200 1190 Intake: Oral 600 1190 Output: Urine 400 Other: Voiding Method Toilet Toilet Urinal Urinal # Voids 2 3 Results 08/22/19 08:01 08/22/19 08:01 CBC 08/22/19 Range/Units 08:01 WBC 6.2 (3.8-10.6) k/uL RBC 2.88 L (4.30-5.90) m/uL Hgb 8.8 L (13.0-17.5) gm/dL Hct 26.3 L (39.0-53.0) % Plt Count 154 (150-450) k/uL Comprehensive Metabolic Panel 08/22/19 Range/Units 08:01 Sodium 135 L (137-145) mmol/L Potassium 3.9 (3.5-5.1) mmol/L Chloride 107 (98-107) mmol/L Carbon Dioxide 25 (22-30) mmol/L BUN 25 H (9-20) mg/dL Creatinine 0.73 (0.66-1.25) mg/dL Glucose 89 (74-99) mg/dL Calcium 7.8 L (8.4-10.2) mg/dL Current Medications Generic Name Dose Route Start Last Admin Trade Name Freq PRN Reason Stop Dose Admin Acetaminophen 650 mg 08/19/19 21:28 Tylenol Tab PO Q6HR PRN Mild Pain or Fever > 100.5 Hydrocodone Bitart/Acetaminophen 1 each 08/19/19 21:28 08/22/19 09:43 Br[place]hall 5-325 PO 1 each Q4HR PRN Administration Moderate Pain Aspirin 81 mg 08/20/19 09:00 08/22/19 07:59 Aspirin PO 81 mg DAILY PERLA Administration Bisacodyl 5 mg 08/20/19 09:00 Dulcolax PO DAILY PRN Constipation Hydromorphone HCl 1 mg 08/19/19 21:28 Dilaudid IVP Q3HR PRN Severe Pain Ketorolac Tromethamine 15 mg 08/20/19 08:00 08/22/19 13:24 Toradol IVP 08/25/19 08:01 15 mg Q6H PERLA Administration Naloxone HCl 0.2 mg 08/19/19 21:28 Narcan IV Q2M PRN Opioid Reversal Nicotine 1 patch 08/19/19 21:30 08/22/19 08:02 Habitrol 14mg/24hr Patch TRANSDERM Not Given DAILY PERLA Ondansetron HCl 4 mg 08/19/19 21:28 08/20/19 00:22 Zofran IVP 4 mg Q8HR PRN Administration Nausea And Vomiting Pantoprazole Sodium 40 mg 08/21/19 17:30 08/22/19 07:59 Protonix PO 40 mg AC-BID PERLA Administration Tamsulosin HCl 0.4 mg 08/20/19 21:00 08/22/19 07:59 Flomax PO 0.4 mg BID PERLA Administration Intake and Output 08/21/19 08/22/19 08/22/19 22:59 06:59 14:59 Intake Total 600 1190 Output Total 400 Balance 200 1190 Intake: Oral 600 1190 Output: Urine 400 Other: Voiding Method Toilet Toilet Urinal Urinal # Voids 2 3 08/22/19 08:01 08/22/19 08:01
[2019-08-22 14:51] VITALS: BP 88/56; PULSE 87; RESP 17; TEMP 97.8
[2019-08-22 17:41] LABS: Iron Saturation 18.72 (15.00-50.00)
[2019-08-22 18:36] LABS: Ferritin 7237.2 ng/mL (22.0-322.0)
--- NOTE | 2019-08-22 20:42 | P.PN ---
Progress Note - Text Progress Note Date: 08/22/19 Advanced Care Planning: Diagnoses: Metastatic prostate cancer to the bones Discussion: Person(s) present and participating in discussion: Zander and his 2 sons Summary: Patient initially wanted to be DNR and sons not in agreement and want him full code. Discussed at length with the patient and family what the term DNR means and includes- CPR with pounding on chest, shocking your heat, intubation. Patient initially stated that if it lasted for a few minutes thats fine but no more. Explained that we do not know how long it will take to resuscitate someone. Ultimately after much discussion he would be okay with a short burst of CPR and intubation. However if it was no hope of meaningful recovery in coming off machines and tubes he would not want to be kept alive long-term. He also indicates that he does not believe he would want things such as dialysis or a feeding tube. We discussed that he will have palliative care at home which could discuss all of these options further. I again reiterated to the family that is ultimately up to the patient to make the decision. I discussed with them the 5 wishes book. Including multiple scenarios presented in the book, along with written instructions for the family so that wishes are respected. They're very interested in having the book and reviewing it. I also reinforced with family do not need an ultimate decision at this point in time. However unless stated otherwise he would remain a full code. Patient and family are in agreement with this. They will continue to discuss this further at home including with the palliative care nurse practitioner on visits. He does again reiterate that the most important thing for him his pain control. He is willing to try androgen androgen deprivation therapy and chemotherapy if needed to treat his prostate cancer. It also be willing to try radiation if needed for pain control but would rather stick with medications at this point in time as they are currently working well for pain control. A total of 25 minutes of face to face time was spent discussing advanced care planning.
--- NOTE | 2019-08-22 20:54 | P.DS ---
Providers Date of admission: 08/19/19 21:28 Expected date of discharge: 08/22/19 Attending physician: Andrew Jiménez MD Consults: 08/19/19 22:45 Consult Physician Routine Consulting Provider: Trey Hoffman Consult Reason/Comments: AAA 5.5 cm Do you want consulting provider notified?: Yes 08/19/19 22:46 Consult Physician Routine Consulting Provider: Jose Calvin Consult Reason/Comments: h/o prostate CA, hematuria Do you want consulting provider notified?: Yes 08/19/19 22:48 Consult Physician Routine Consulting Provider: Jb Lau Consult Reason/Comments: ?metastatic bone lesions Do you want consulting provider notified?: Yes 08/21/19 19:41 Consult Physician Routine Consulting Provider: Virgilio Day Consult Reason/Comments: syncope, caridomopathy Do you want consulting provider notified?: Yes, Notify in am Primary care physician: Physician Nonstaff Hospital Course: Discharge Diagnosis: Prostate cancer with metastases to the bone. Intractable pain Abdominal aortic aneurysm Syncope with newly discovered cardiomyopathy BPH Anemia Cachexia with severe protein calorie malnutrition and BMI of 17.4 Hospital Course: Patient is an 78-year-old male with a past medical history of prostate cancer treated with radiation, prior myocardial infarction approximately 20 years ago, and tobacco abuse who presented to [facility] after a syncopal episode. Patient had been living near [place] but was down here visiting family. He also reported a 20 pound weight loss over the last several months. He has been having severe sharp back pain with radiation to the anterior chest, and right hip pain. In the ER he underwent an extensive evaluation. CTA of the chest which showed mild to moderate emphysematous changes with new innumerable sclerotic foci consistent with metastatic disease from known prostate cancer and an abdominal aortic aneurysm 5.5 cm which has increased in size compared to 2013. On initial evaluation in the ER his vital signs are within normal limits. Orthostatics were negative. Laboratory analysis showed anemia, elevated BUN at 28, elevated alkaline phosphatase at 149, and low albumin at 3.3. Oncology and urology were consulted. Dr. Sparrow stated patient was following and [place] but would discuss case with Dr. Calvin. He was seen by oncology who suggested a bone scan. Echocardiogram was completed to his syncopal event which showed an ejection fraction of 45-50% with global left ventricular hypokinesis. Dr. Hoffman was consulted from vascular surgery who recommended outpatient follow-up for his aortic aneurysm. He underwent a nuclear medicine bone scan which showed confirmation of the diffuse osseous metastatic disease. There was innumerable areas of radial tracer uptake throughout the bilateral ribs, multifocal throughout the thoracolumbar spine, with 2 right femoral lesions. His pain was well-controlled on IV Toradol. He is feeling well and wanted to be discharged home. He was seen by cardiology who felt that he was appropriate for discharge and follow-up in the outpatient setting for further evaluation of possible arrhythmia. Case was discussed with oncology and they will see him in the office for further discussion on androgen deprivation therapy as well as chemotherapy. He was seen by Dr. Calvin who agreed with continuing Lupron, oral androgen deprivation therapy, and chemotherapy. At this point in time his pain is being well-controlled on Toradol. He realizes that radiation is an option if his pain is uncontrolled. I discussed that radiation would be more for pain control but would not stop the growth of his overall prostate cancer as it has multiple areas in foci. Family is having difficulty comprehending the prostate cancer is in the bone, and that these are not 2 separate cancers. They'll need continued education. They will also be having palliative care on outpatient basis for symptom management and further discussion of advanced directives. He was given a prescription for [place], maps was reviewed, opiate start talking form filled out, it was discussed on properly dispose of these medications. I also gave them my card to call our office should he have additional questions or concerns prior to seeing oncology. He has seen Dr. Morales in the past and he will follow with him for PCP. Patient seen and examined at bedside. Vital signs reviewed and stable. General: non toxic, no distress, appears younger than stated age, temproal wasting, gaunt Derm: warm, dry Head: atraumatic, normocephalic, symmetric Eyes: EOMI, no lid lag, anicteric sclera Mouth: no lip lesion, mucus membranes moist Cardiovascular: S1S2 reg, no murmur, positive posterior tibial pulse bilateral, Lungs: CTA bilateral, no rhonchi, no rales , no accessory muscle use Abdominal: soft, nontender to palpation, no guarding, no appreciable organomegaly Ext: no gross muscle atrophy, no edema, no contractures Neuro: CN II-XI grossly intact, no focal neuro deficits Psych: Alert, oriented, appropriate affect A total of 35 minutes of time were spent preparing this complex discharge summa ry . Patient Condition at Discharge: Stable Plan - Discharge Summary Discharge Rx Participant: Yes New Discharge Prescriptions: New Ibuprofen [Motrin] 600 mg PO Q8HR PRN #90 tab PRN Reason: Pain Scale 1 To 5 HYDROcodone/APAP 5-325MG [[place] 5-325] 1 each PO Q4HR PRN #28 tab PRN Reason: Moderate Pain Pantoprazole [Protonix] 40 mg PO AC-BID #30 tablet. Continue Aspirin EC [Ecotrin Low Dose] 81 mg PO DAILY Tamsulosin [Flomax] 0.4 mg PO BID Discontinued Ibuprofen [Motrin] 800 mg PO TID PRN PRN Reason: Pain Discharge Medication List Aspirin EC [Ecotrin Low Dose] 81 mg PO DAILY 08/19/19 [History] Tamsulosin [Flomax] 0.4 mg PO BID 08/20/19 [History] HYDROcodone/APAP 5-325MG [[place] 5-325] 1 each PO Q4HR PRN #28 tab 08/22/19 [Rx] Ibuprofen [Motrin] 600 mg PO Q8HR PRN #90 tab 08/22/19 [Rx] Pantoprazole [Protonix] 40 mg PO AC-BID #30 tablet. 08/22/19 [Rx] Follow up Appointment(s)/Referral(s): Jb Lau MD [STAFF PHYSICIAN] - 1 Week (The office ronn call you with an appointment time and date the office first has to speak with the doctor.) He Morales DO [REFERRING] - 2 Weeks (The office will call you with the appointment.) [facility], [NON-STAFF] - ( This is the contact information for [facility] care team also.) Sushil Gay MD [STAFF PHYSICIAN] - 09/08/19 2:45 pm Activity/Diet/Wound Care/Special Instructions: Activity: As tolerated Diet: Regular Diet Discharge Disposition: HOME SELF-CARE
== END 2019-08-22 15:46 | disposition home health service (06) | DRG 542 ==
LOC: EC 17:19 → 3NMEDONC 21:28
PROVIDERS: ADMIT Internal Medicine; ATTEND Internal Medicine
DX: C79.51 Secondary malignant neoplasm of bone (principal); E43 Unspecified severe protein-calorie malnutrition; R64 Cachexia; Z68.1 Body mass index [BMI] 19.9 or less, adult; Z51.5 Encounter for palliative care; E86.0 Dehydration; D63.0 Anemia in neoplastic disease; R31.9 Hematuria, unspecified; I25.5 Ischemic cardiomyopathy; N40.0 Benign prostatic hyperplasia without lower urinary tract symptoms; I71.4 Abdominal aortic aneurysm, without rupture; I25.10 Atherosclerotic heart disease of native coronary artery without angina pectoris; I49.3 Ventricular premature depolarization; I25.2 Old myocardial infarction; F17.210 Nicotine dependence, cigarettes, uncomplicated; Z71.6 Tobacco abuse counseling; Z85.46 Personal history of malignant neoplasm of prostate; Z79.82 Long term (current) use of aspirin; Z79.899 Other long term (current) drug therapy; Z92.3 Personal history of irradiation; Z80.9 Family history of malignant neoplasm, unspecified
CPT/HCPCS: 36415; 71046; 71275; 78306; 80048; 80053; 82728; 83540; 83550; 83615; 83735; 83880; 84153; 84403; 84443; 84484; 85025; 85027; 85379; 85610; 85652; 85730; 93005; 93306; 94640; 94760; 96361; 96374; 96375; 96376; 99285

== ENCOUNTER → 2019-11-08 | Outpatient (CLI) | payer MEDICARE, BC ==
--- NOTE | 2019-11-11 09:43 | PE ---
Nuclear medicine PET/CT HISTORY: Prostate carcinoma, subsequent Patient received 13.2 mCi F-18 FDG intravenously in delayed scanning was performed from the skull bas e to the mid thighs. Localization and attenuation correction CT scan was performed. Correlation to prior bone scan dated 08/20/2019 Neck and chest: No cervical or supraclavicular adenopathy. No mediastinal, axillary, or hilar adenopa thy. There are coronary artery calcifications present, the heart is enlarged. There is no evident fela g masses, there is no pleural or pericardial effusion. On mild hilar and mediastinal uptake present. The aorta is aneurysmal ascending aorta measures 4.2 cm proximal descending aorta is 2.5 cm. Pulmonar y artery is dilated, correlate for pulmonary artery hypertension. ABDOMEN: No evident liver mass or hypermetabolic uptake. No retroperitoneal adenopathy. Abdominal aor tic aneurysm is present measuring 6.3 cm. Urinary bladder shows associated calcification measuring 1 cm. No pelvic adenopathy or free fluid. The posterior aspect of the left kidney shows a mass measurin g approximately 2 cm with elevated Hounsfield units possible proteinaceous cysts, largest cystic focu s measuring 6.9 cm more inferiorly. Nonobstructive left renal calculus noted. Rectus musculature show s uptake which is likely physiologic. Suspect bowel uptake, rectal uptake is physiologic. Osseous structures: Too numerous to count sclerotic lesions are present throughout the skeleton simil ar to prior bone scan consistent with diffuse metastatic disease. There is associated hypermetabolic uptake. IMPRESSION: Metastatic disease. Abdominal aortic aneurysm, thoracic aortic aneurysm. Correlate for pu lmonary artery hypertension. Coronary artery disease. Nonobstructive left renal calculus. Bladder martina culus.
== END | disposition home or self-care (01) ==
LOC: RADPETMAIN 10:31
PROVIDERS: ATTEND General Practice
DX: C61 Malignant neoplasm of prostate (principal); C79.51 Secondary malignant neoplasm of bone
CPT/HCPCS: 78815; A9552

== ENCOUNTER 2019-11-10 08:34 | Emergency (ER) | payer MEDICARE, BC ==
[2019-11-10 08:41] VITALS: RESP 18
--- NOTE | 2019-11-10 09:15 | ED ---
General Adult HPI - General Chief complaint: Urogenital Stated complaint: cannot urinate Time Seen by Provider: 11/10/19 08:50 Source: patient, RN notes reviewed, old records reviewed Mode of arrival: wheelchair Limitations: no limitations - History of Present Illness Initial comments: 79-year-old male presents with complaint of unable to urinate. Patient has previous history of urinary retention requiring catheterization. History of prostate CA. He has history of BPH. He states that he's had some hematuria very small blood clots over the past one week. He reports that he's been unable to urinate since yesterday evening. He is complaining of lower abdominal pain. No fever or chills. No upper abdominal pain. No chest pain or dyspnea. No nausea vomiting or diarrhea. - Related Data Home Medications Medication Instructions Recorded Confirmed Aspirin EC [Ecotrin Low Dose] 81 mg PO DAILY 08/19/19 08/19/19 Tamsulosin [Flomax] 0.4 mg PO BID 08/20/19 08/20/19 Previous Rx's Medication Instructions Recorded HYDROcodone/APAP 5-325MG [[place] 1 each PO Q4HR PRN #28 tab 08/22/19 5-325] Ibuprofen [Motrin] 600 mg PO Q8HR PRN #90 tab 08/22/19 Pantoprazole [Protonix] 40 mg PO AC-BID #30 tablet. 08/22/19 Allergies Allergy/AdvReac Type Severity Reaction Status Date / Time No Known Allergies Allergy Verified 11/10/19 08:41 Review of Systems ROS Statement: Those systems with pertinent positive or pertinent negative responses have been documented in the HPI. ROS Other: All systems not noted in ROS Statement are negative. Past Medical History Past Medical History: Hyperlipidemia Additional Past Medical History / Comment(s): prostate cancer History of Any Multi-Drug Resistant Organisms: None Reported Past Surgical History: No Surgical Hx Reported Past Psychological History: No Psychological Hx Reported Smoking Status: Current every day smoker Past Alcohol Use History: None Reported Past Drug Use History: None Reported - Past Family History Family Family Medical History: No Reported History Additional Family Medical History / Comment(s): Reports history of cancer in his sister General Exam Limitations: no limitations General appearance: alert, in no apparent distress Head exam: Present: atraumatic, normocephalic Eye exam: Present: normal appearance, PERRL ENT exam: Present: normal exam Neck exam: Present: normal inspection. Absent: tenderness, meningismus Respiratory exam: Present: normal lung sounds bilaterally, respiratory distress Cardiovascular Exam: Present: regular rate, normal rhythm GI/Abdominal exam: Present: soft, distended, tenderness Extremities exam: Present: normal inspection, normal capillary refill. Absent: calf tenderness Neurological exam: Present: alert, oriented X3, CN II-XII intact. Absent: motor sensory deficit Psychiatric exam: Present: normal affect, normal mood Skin exam: Present: warm, dry, intact. Absent: cyanosis, diaphoretic Course Vital Signs 11/10/19 08:38 Temperature 97.8 F Pulse Rate 93 Respiratory 18 Rate Blood Pressure 103/64 O2 Sat by Pulse 98 Oximetry Medical Decision Making - Medical Decision Making 79-year-old male with urinary retention. Urinary catheter is ordered, while awaiting insertion, patient goes to the restroom, he has a bowel movement and voids spontaneously. He returns to the room feeling completely better he is eager for discharge. He will follow-up with urology. He will return with urinary retention or any new symptoms. Disposition Clinical Impression: History of prostate cancer, Acute retention of urine Disposition: HOME SELF-CARE Condition: Good Instructions (If sedation given, give patient instructions): Urinary Retention in Men (ED) Additional Instructions: Please return with urinary retention, please follow up with urology as soon as possible. Is patient prescribed a controlled substance at d/c from ED?: No Referrals: None,Stated [REFERRING] - 1-2 days Jorje Ann MD [STAFF PHYSICIAN] - 1-2 days Time of Disposition: 09:35
[2019-11-10 10:08] VITALS: BP 98/69; PULSE 87; TEMP 97.7
== END 2019-11-10 10:08 | disposition home or self-care (01) ==
LOC: EC 08:34
DX: N40.1 Benign prostatic hyperplasia with lower urinary tract symptoms (principal); R33.8 Other retention of urine; E78.5 Hyperlipidemia, unspecified; F17.200 Nicotine dependence, unspecified, uncomplicated; Z79.82 Long term (current) use of aspirin; Z79.899 Other long term (current) drug therapy; Z85.46 Personal history of malignant neoplasm of prostate
CPT/HCPCS: 51798; 99284